=== PATIENT | female | born 1995 | race Caucasian/White ===

== ENCOUNTER 2023-09-03 11:07 | Outpatient (CLI) | payer BC, SELFPAY ==
--- NOTE | ~2023-09-03 | US_ITS ---
EXAMINATION: US thyroid DATE: 09/03/2023 11:47 INDICATION: Rudolph's thyroiditis. Fullness. TECHNIQUE: Multiple ultrasound images of the thyroid were obtained. COMPARISON: None. FINDINGS: The right thyroid lobe measures 5.2 x 1.5 x 1.8 cm. The left thyroid lobe measures 4.1 x 1.2 x 1.8 c m. The isthmus measures 0.3 cm. There is normal echotexture and echogenicity throughout the thyroid g land. No discrete nodules identified. Normal vascular flow is present. IMPRESSION: Unremarkable thyroid ultrasound findings. Reviewed, dictated and finalized at location K.
== END 2023-09-03 11:08 | disposition home or self-care (01) ==
LOC: ANHIMG 11:11
PROVIDERS: PCP Family Medicine; Visit Provider Internal Medicine
DX: E06.3 Autoimmune thyroiditis (principal); R22.1 Localized swelling, mass and lump, neck
CPT/HCPCS: 76536

== ENCOUNTER 2023-09-16 09:20 | Outpatient (CLI) | payer BC, SELFPAY ==
[2023-10-05 17:38] VITALS: BMI 30.7
--- NOTE | 2023-10-05 17:38 | WPDHOMESLEEP ---
Sleep Study - Home Unattended Date of Study: 09/16/23 Ordering Provider: Chinmay Madrid APRN Interpreting Provider: Milka Chacon DO Home Sleep Study Type: Watch PAT Height: 1.75 m Weight: 94.347 kg Body Mass Index: 30.7 Neck Circumference (inches): 16 [place]: 14 Reason for Sleep Study Daytime hypersomnia Sleep History The patient is a 27-year-old female that had a sleep study ordered by the pulmonary group for evaluation of sleep apnea. The patient does admit to snoring loudly. She denies stopping breathing while sleeping. She denies nocturnal choking and gasping. She denies having trouble sleeping on her back. She does admit to morning headache and morning dry mouth. She denies nocturnal heart burn. She denies nocturia. . She admits to being tired during the day and having on refreshing sleep. She does have the urge to fall asleep during the day. She denies feeling drowsy while driving. She denies having difficulty returning to sleep. She denies having trouble waking up too early or having trouble falling asleep. She denies using hypnotics her sedatives. She denies being anxious about sleep. She does admit to clenching and grinding her teeth. She does kick and jerk her legs excessively. She does have a restless feeling in her legs. She does have the urge to move her legs. The bridge to move her legs does not get worse with rest nor does it improve with activity. The restless feeling in her legs only occurs in the evening and it does cause disturbance in her sleep. She denies smoking cigarettes. She consumes 1 glass of an alcoholic beverage 1-2 times per week. She consumes 1-2 cups of caffeinated beverage per day. She denies exercising. [facility] Past Medical History Medical History ADHD (attention deficit hyperactivity disorder) Anxiety Irregular menstrual bleeding TOS (thoracic outlet syndrome) 08/15/13 Surgical History Surgical History H/O left knee surgery x4 History of eye surgery 10/04/20 PRK Family History Family History Mother Diabetes mellitus Grandparent Hypertension paternal grandfather Cerebrovascular accident paternal grandfather Social History Social History Smoking status: Never smoker Alcohol intake: current Alcohol use details: social 5 month Substance use: never Substance use type: does not use Lack of Transportation: No Lack of Food: Never True Current Housing: I Have Housing Concerned About Future Housing: No Difficulty Paying Gas/Electric Bills: No Difficulty Paying for Meds: No Currently Unemployed: YES Education: Bachelor's Degree Difficulty w/ Childcare or Family Care: Decline to Answer Living arrangements: with family Additional living arrangements comments: single Occupation/Education: occupation Additional occupation/education comments: realestate agent Gender identity (if verbalized by the patient): Female Sexual Orientation (if Verbalized by the Patient): Straight or Heterosexual Medications Home Medications Medication Instructions Recorded Confirmed Type sumatriptan succinate 100 mg tablet See Rx Instructions PO .COMPLEX 04/29/23 10/02/23 Rx #10 tabs spironolactone 50 mg tablet 50 mg PO BID #180 tabs 08/24/23 10/02/23 Rx ferrous sulfate 325 mg (65 mg 325 mg PO DAILY #30 tabs 09/03/23 10/02/23 Rx iron) tablet,delayed release metformin 500 mg tablet 500 mg PO DAILY #30 tabs 09/21/23 10/02/23 Rx methylphenidate HCl 18 mg 18 mg PO QAM #30 tabs 10/02/23 10/02/23 Rx tablet,extended release 24 hr (Concerta) Sleep Procedure The sleep study was completed using octoScopeT a technically adequate device with seven channels: peripheral arterial tone, actigraphy, bod
== END 2023-09-17 14:27 | disposition home or self-care (01) ==
LOC: ANHCSM 09:21
PROVIDERS: PCP Family Medicine; Visit Provider Nurse Practitioner Family
DX: G47.19 Other hypersomnia (principal)
CPT/HCPCS: 95800

== ENCOUNTER 2023-12-22 09:42 | Outpatient (CLI) | payer BC, SELFPAY ==
--- NOTE | 2024-01-18 12:37 | P.SLEEP_ITS ---
Sleep Study Date of Study: 12/22/23 Ordering Provider: Chinmay Madrid APRN Interpreting Physician: Milka Chacon DO Sleep Study Type: Polysomnogram Height: 1.75 m Weight: 89.358 kg Body Mass Index: 29.0 Neck Circumference (inches): 15 [place]: 8 Reason for Sleep Study Excessive daytime sleepiness WatchPAT home sleep test on 09/16/2023 showed an overall AHI of 1.6 with desaturation down to 90%. [place] Sleepiness Score of 14 Sleep History The patient is a 28-year-old female that had a sleep study ordered by the pulmonary group for evaluation of excessive daytime sleepiness. She denies awakening from sleep short of breath. She denies awakening at night with heartburn, belching or cough. She occasionally snores but it is rarely loud enough that others complain. She rarely has trouble sleeping when she has a cold. She denies waking up gasping for air throughout the night. She denies having breathing problems at night observed by herself or others. She frequently sweats excessively at night. She denies having heart palpitations or irregular heartbeats during the night. She rarely falls asleep during the day but never while driving. She frequently has trouble at school or work due to sleepiness. She denies sleep paralysis and hypnagogic/ hypnopompic hallucinations. She denies feeling afraid of going to sleep. She rarely has nightmares. She denies remembering her dreams. She constantly has thoughts racing through her mind. She rarely feels sad or depressed. She frequently has anxiety. She frequently has muscular tension. She constantly notices parts of her body jerking. She frequently kicks during the night. She occasionally has crawling and aching feelings in her legs but rarely has leg pain during the night. She frequently grinds her teeth during sleep and frequently awakens with morning jaw pain. She is frequently bothered by pain during the day but rarely awakened by pain during the night. She constantly wakes up feeling stiff in the morning. She constantly wakes up with sore or achy muscles. She constantly wakes up with pain in the neck, spine or other joints. She goes to bed at 10:30 p.m. on weekdays and at midnight on the weekends. It takes her 5-10 minutes to fall asleep. She wakes up once throughout the night at most to urinate and is able to fall back asleep immediately. She wakes up at 7:00 a.m. on weekdays and 8:30 a.m. on the weekends. She typically gets 7 to 7- 1/2 hours of sleep per night. She will stay in bed for 10-15 minutes after waking up in the morning. She currently lives with her . She denies consuming any caffeinated beverages within 2 hours of bedtime. She denies engaging in physical exercise before bedtime. She will watch television before falling asleep. She denies taking naps in the afternoon or the evening. She consumes 1-2 caffeinated beverages per day. She denies tobacco use. She rarely consumes alcoholic beverages. She denies recreational drug use. [facility] Past Medical History Medical History ADHD (attention deficit hyperactivity disorder) Anxiety Encounter for screening examination for sexually transmitted disease Irregular menstrual bleeding TOS (thoracic outlet syndrome) 08/15/13 Surgical History Surgical History H/O left knee surgery x4 History of eye surgery 10/04/20 PRK History of foot surgery (~04/2023) right foot 2 screws inserted after fracture Family History Family History Mother Diabetes mellitus Grandparent Hypertension paternal grandfather Cerebrovascular accident paternal grandfather Social History Social History Smoking status: Never smoker Second hand tobacco smoke exposure: No Alcohol intake: current Alcohol use details: social 5 month Substance use: never Substance use type: does not use Do You Feel Safe in your Home?: Yes Lack of Transportation: No Lack of Food: Never True Current Housing: Decline to Answer Concerned About Future Housing: Decline to Answer Difficulty Paying Gas/Electric Bills: Decline to Answer Difficulty Paying for Meds: Decline to Answer Currently Unemployed: Decline to Answer Education: Decline to Answer Difficulty w/ Childcare or Family Care: Decline to Answer Living arrangements: with family Additional living arrangements comments: Occupation/Education: occupation Additional occupation/education comments: realestate agent Gender identity (if verbalized by the patient): Female Sexual Orientation (if Verbalized by the Patient): Straight or Heterosexual Medications Home Medications Medication Instructions Recorded Confirmed Type sumatriptan succinate 100 mg tablet See Rx Instructions PO .COMPLEX 04/29/23 12/09/23 Rx #10 tabs ferrous sulfate 325 mg (65 mg 325 mg PO DAILY #30 tabs 09/03/23 12/09/23 Rx iron) tablet,delayed release metformin 500 mg tablet 500 mg PO DAILY #30 tabs 09/21/23 12/09/23 Rx atogepant 60 mg tablet (Qulipta) 60 mg PO DAILY #1 tablet 10/28/23 12/09/23 Rx spironolactone 50 mg tablet 50 mg PO BID #180 tabs 11/23/23 12/09/23 Rx dextroamphetamine-amphetamine ER 20 mg PO DAILY #30 caps 12/24/23 Rx 20 mg 24hr capsule,extend release (Adderall XR) Sleep Procedure A full night polysomnogram using the [employer] multi-channel system recorded the standard physiologic parameters including EEG, EOG, submentalis EMG, anterior tibialis EMG, EKG, body position, nasal and oral airflow using nasal pressure sensor and thermistor.? Respiratory parameters of chest and abdominal movements were recorded with Respiratory Inductance Plethysmography belts. Oxygen saturation was recorded by pulse oximetry. Video monitoring was also performed. Sleep stages, periodic limb movements, and EEG arousals were scored in 30 second epochs according to the criteria of the AASM Scoring Manual. The Apnea-Hypopnea Index was calculated using CMS guidelines for definition of hypopnea with 4% O2 desaturations while scoring respiratory events. Sleep Architecture The total recording time was 530.3 minutes.? The total sleep time was 385.5 minutes. Sleep latency was 16.3 minutes. REM latency was 290.0 minutes. Sleep efficiency was 72.7%. The patient had 43 awakenings for an awakening index of 6.7. Wake after sleep onset time was 129.0 minutes. The patient spent 64.5 minutes, 16.7% of total sleep time in Stage N1. The patient spent 183.5 minutes, 47.6% in Stage N2. The patient spent 2.0 minutes, 0.5% in Stage N3. The patient spent 135.5 minutes, 35.1% in Stage REM sleep. Respiratory Analysis The patient had 9 hypopneas, 2 obstructive apneas and 5 central apneas for an overall Apnea Hypopnea Index of 2.5. The REM Apnea Hypopnea Index was 8.9. The NREM Apnea Hypopnea Index was 0.7. The patient had a Central Apnea Hypopnea Index of 0.8. There was no evidence of [place] Respirations. Arousals There were 189 total arousals for an arousal index of 29.4. There were 152 spontaneous arousals for an index of 23.7. There were 6 arousals due to respiratory events for an index of 0.9. There were 6 arousals due to periodic limb movements for an index of 0.9.? There were 26 arousals due to isolated limb movements for an index of 4.0. Periodic Limb Movements The patient had 94 isolated limb movements with an index of 14.6. The patient had 88 periodic limb movements with an index of 13.7. Patient had a total of 182 limb movements with a total limb movement index of 28.3. Oximetry Data The patient had an average oxygen saturation of 96.2% in sleep with a minimum oxygen saturation of 85.0% and a maximum oxygen saturation of 99.0%. The patient had 15 oxygen desaturations that were 4% or greater resulting in an Oxygen Desaturation Index of 2.3.? The patient spent 0.4 minutes, 0.1% of total sleep time with an oxygen saturation below 88%. Snoring Profile Moderate snoring was present throughout the study. Cardiac Profile The EKG showed normal sinus rhythm. No arrhythmias or PVCs were seen. The patient had an average pulse rate of 58.0 bpm with a minimum pulse of rate of 46.0 bpm and a maximum pulse rate of 92.0 bpm.? EEG Profile No signs of seizure activity seen. Assessment and Plan Assessment and Plan (1) Excessive daytime sleepiness: Code(s): G47.19 - Other hypersomnia Status: Acute Assessment and Plan: The patient had an overall AHI of 2.5 with desaturation down to 85%. This is not consistent with sleep-disordered breathing. No sleep-onset REM was seen on this study. Please see MSLT report. The patient also mentioned having frequent symptoms of anxiety in her sleep history. I recommend that the patient complete a PHQ-9 and MARIE-7 for further evaluation of mood disorders and review the results with her PCP. The patient's sleep history is suggestive of Restless Leg Syndrome. I recommend that the patient have a serum ferritin drawn for evaluation of iron deficiency anemia. If the patient has a serum ferritin less than 75 ng/mL, I recommend sta rting a daily iron supplement and a Vitamin C supplement for better absorption. If the serum ferritin is greater than 75 ng/mL, I recommend starting a dopamine agonist and titrating the dose until symptoms resolve. There are nonpharmacological methods to treat limb movements including daily exercise, stretching calf muscles before bed, avoiding excessive amounts of caffeine and alcohol, vitamin B supplementation, magnesium lotion massaged into legs before bed, and use of a weighted blanket. Data The data obtained during this sleep study is adequate for interpretation. Certification This sleep study has been reviewed by a board certified sleep medicine physician.
[2024-01-18 15:19] VITALS: BMI 29.0
[2024-01-18 15:32] VITALS: BMI 29.0
--- NOTE | 2024-01-18 15:32 | P.SLEEP_ITS ---
Sleep Study Date of Study: 12/22/23 Ordering Provider: Chinmay Madrid APRN Interpreting Physician: Milka Chacon DO Sleep Study Type: Multiple Sleep Latency Test Height: 1.75 m Weight: 89.358 kg Body Mass Index: 29.0 Neck Circumference (inches): 15 [place]: 8 Reason for Sleep Study Excessive daytime sleepiness Sleep History Please see polysomnogram report PMFSH Past Medical History Medical History ADHD (attention deficit hyperactivity disorder) Anxiety Encounter for screening examination for sexually transmitted disease Irregular menstrual bleeding TOS (thoracic outlet syndrome) 08/15/13 Surgical History Surgical History H/O left knee surgery x4 History of eye surgery 10/04/20 PRK History of foot surgery (~04/2023) right foot 2 screws inserted after fracture Family History Family History Mother Diabetes mellitus Grandparent Hypertension paternal grandfather Cerebrovascular accident paternal grandfather Social History Social History Smoking status: Never smoker Second hand tobacco smoke exposure: No Alcohol intake: current Alcohol use details: social 5 month Substance use: never Substance use type: does not use Do You Feel Safe in your Home?: Yes Lack of Transportation: No Lack of Food: Never True Current Housing: Decline to Answer Concerned About Future Housing: Decline to Answer Difficulty Paying Gas/Electric Bills: Decline to Answer Difficulty Paying for Meds: Decline to Answer Currently Unemployed: Decline to Answer Education: Decline to Answer Difficulty w/ Childcare or Family Care: Decline to Answer Living arrangements: with family Additional living arrangements comments: Occupation/Education: occupation Additional occupation/education comments: realestate agent Gender identity (if verbalized by the patient): Female Sexual Orientation (if Verbalized by the Patient): Straight or Heterosexual Medications Home Medications Medication Instructions Recorded Confirmed Type sumatriptan succinate 100 mg tablet See Rx Instructions PO .COMPLEX 04/29/23 12/09/23 Rx #10 tabs ferrous sulfate 325 mg (65 mg 325 mg PO DAILY #30 tabs 09/03/23 12/09/23 Rx iron) tablet,delayed release metformin 500 mg tablet 500 mg PO DAILY #30 tabs 09/21/23 12/09/23 Rx atogepant 60 mg tablet (Qulipta) 60 mg PO DAILY #1 tablet 10/28/23 12/09/23 Rx spironolactone 50 mg tablet 50 mg PO BID #180 tabs 11/23/23 12/09/23 Rx dextroamphetamine-amphetamine ER 20 mg PO DAILY #30 caps 12/24/23 Rx 20 mg 24hr capsule,extend release (Adderall XR) Sleep Procedure The MSLT is a full-day test that consists of five scheduled naps. After the first nap trial, the subsequent nap trial begins 2 hours after the start of the prior nap trial.?The patient is given the opportunity to fall asleep within 20 m inutes and is woken up 15 minutes after falling asleep. The goal is to see if the patient achieves REM sleep within the nap. The recording montage for the MSLT includes frontal (F3-M2 or F4-M1), central (C3-M2 or C4-M1), occipital (O1- M2 or O2-M1) derivations, left and right eye EOGs, mental/submental EMG, and EKG.? Sleep Architecture Nap Summary: Nap trials started at 07:59:50 AM following an overnight polysomnogram that ended at 06:25 with an overall Apnea Hypopnea index of 2.5 events per hour. Sleep onset REM (SOREM) was not present during the overnight polysomnogram. Nap 1 commenced at 07:59:50 AM. Sleep latency was 4.5 minutes. REM sleep did not occur. Total sleep time was 15.8 minutes. Nap was terminated at 08:20:06. The patient reported that sleep may have occurred. The patient reported that dreaming did not occur. Nap 2 commenced at 09:59:50 AM. Sleep latency was 4.0 minutes. REM sleep did not occur. Total sleep time was 12.2 minutes. Nap was terminated at 10:19:31 AM. The patient reported that sleep did not occur. The patient reported that dreaming did not occur. Nap 3 commenced at 12:00:53 PM. Sleep latency was 6.4 minutes. REM sleep did not occur. Total sleep time was 12.5 minutes. Nap was terminated at 12:22:50 PM. The patient reported that sleep may have occurred.The patient reported that dreaming did not occur. Nap 4 commenced at 02:00:59PM. Sleep latency was 7.3 minutes. REM sleep did not occur. Total sleep time was 13.7 minutes. Nap was terminated at 02:23:59 PM. The patient reported that sleep did occur.The patient reported that dreaming did not occur. Nap 5 commenced at 04:02:20 PM. Sleep latency was 20 minutes. REM sleep did not occur. Total sleep time was 0 minutes. Nap was terminated at 04:23:14 PM. The patient reported that sleep did not occur.The patient reported that dreaming did not occur. The patient achieved sleep in 4 of 5 nap opportunities. The overall average sleep latency was 8.6 minutes. The patient achieved REM sleep (SOREM) in 0 naps. Respiratory Analysis N/A Arousals N/A Periodic Limb Movements N/A Oximetry Data N/A Snoring Profile N/A Cardiac Profile N/A EEG Profile No signs of seizure activity seen. Assessment and Plan Assessment and Plan (1) Excessive daytime sleepiness: Code(s): G47.19 - Other hypersomnia Status: Acute Assessment and Plan: The patient achieved sleep in 4 of 5 nap opportunities. The overall average sleep latency was 8.6 minutes. The patient achieved REM sleep (SOREM) in 0 naps. SOREM was not achieved in the polysomnogram from the night prior. These findings are not consistent with narcolepsy. Data The data obtained during this sleep study is adequate for interpretation. Certification This sleep study has been reviewed by a board certified sleep medicine physician.
== END 2023-12-23 16:48 | disposition home or self-care (01) ==
PROVIDERS: PCP Family Medicine; Visit Provider Nurse Practitioner Family
DX: F51.8 Other sleep disorders not due to a substance or known physiological condition (principal); G47.10 Hypersomnia, unspecified; G47.19 Other hypersomnia
CPT/HCPCS: 95805; 95810

== ENCOUNTER 2024-12-02 11:05 | Outpatient (CLI) | payer BC, SELFPAY ==
--- OUTSIDE RECORDS SUMMARY | 2023-12-02 04:00 | XMS_ITS ---
Author Organization [facility] [place] ([address]) Address [address] [place] [address] Care Team Providers Care Business Strategist Name Role Phone Allyn Loo Primary Care Provider Dr. Beka Mathis [facility] [phone] REASON FOR VISIT Headache follow-up Encounters Encounter Location Date Provider Diagnosis [facility] [address] [place] [address] 12/02/2023 Beka Schreiber Plan Of Treatment No Information Progress Notes * Patria AARONDOB:1995 ( 29 yo F)Acc No.[id number]:12/02/2023 Progress Notes Patient: Patria SWARTZ Provider: Saira Schreiber MD :1995 A ge:28 Y S ex:Female Date:12/02/2023 Address:[address] [place] [address], [id number] Pcp:Allyn Loo Subjective: * Chief Complaints: * 1 . Headache follow-up. * Medical History: Objective: * Vitals: Assessment: Plan: * Treatment: * Billing Information: * Visit Code: * Procedure Codes: * Electronic signature of Dr. Beka Schreiber MD on 12/02/2024 at 11:26 AM CDT Sign off status: Pending * Provider: Saira Schreiber MD Date: 1 Generated for Anel lópez/Andrew/Jose on: 1 11:26 AM INDIRA
--- NOTE | ~2024-12-02 | XR_ITS ---
EXAMINATION: XR shoulder LT min 2V, 12/02/2024 11:20 CDT HISTORY: left shoulder pain, no injury COMPARISON: No comparisons available. Findings: No acute fracture or malalignment. No significant degenerative changes. Soft tissues unremarkable. Impression: No acute fracture or malalignment. Reviewed, dictated and finalized at location P. Impression: No acute fracture or malalignment.
--- OUTSIDE RECORDS SUMMARY | 2024-12-02 11:27 | XMS_ITS | Patient Health Record ---
Author Organization [facility] [employer] [place] ([address]) Address [address] [place] [address] Care Team Providers Care Olive Brine Tester Name Role Phone Allyn Loo Primary Care Provider Tg Schreiber [facility] [phone] Allergies No Known Allergies Reason For Referral No Information Medications Medication SIG (Take, Route, Frequency, Duration) Notes Start Date End Date Status Qulipta 60 MG 1 tablet Orally Once a day; Duration: 30 days 10/07/2023 Active metFORMIN HCl 500 MG 1 tablet with a ronen l Orally Once a day Active Rizatriptan Benzoate 10 MG 1 tablet Orally once, may repeat x1 after 2-4 hours; Duration: 30 days As needed for migraine (max 2 tabs/day) 10/07/2023 Active Methylphenidate HCl ER 18 MG 1 tablet in the morning Orally Once a day Active Spironolactone 50 MG 1 tablet Orally Onc e a day Active Imitrex 100 MG 1 tablet at least 2 hours between doses as needed Orally Twice a day Active Social History Tobacco Use: Social History Observation Description Date Details (start date - stop date) Never Smoker NA - NA Smoking Smart Form: Question Answer Notes Are you a: never smoker Tobacco Control (Standard) Question Answer Notes Tobacco use: Nonsmoker Problems Problem Type SNOMED Code ICD Code Onset Dates Problem Status W/U Status Risk Notes Problem Migraine with aura (7904150) Migraine with aura, not intractable, without status migrainosus (G43.109) Active confirmed Problem Episodic tension-type headache (771669579) Episodic tension-type headache, not intractable (G44.219) Active confirmed Problem Muscle pain (43589898) Myalgia, unspecified site (M79.10) Active confirmed Encounters Encounter Location Date Provider Diagnosis [facility] [address] [place] [address] 09/02/2024 Beka Schreiber Plan Of Treatment No Information Insurance Providers Payer Name Payer Address Payer Phone Subscriber Number Group Number Insured Name Patient Relationship to Insured Coverage Start Date Coverage End Date [facility] [address] [place] [address] [id number] Patria Aaron Self - patient is the insured 3 Medical (General) History Medical History History ICD Code Migraine H/o juvenile RA PCOS ADHD Rudolph's Surgical History Surgery Date(Month/Year) Foot surgery 2023
== END 2024-12-02 11:06 | disposition home or self-care (01) ==
PROVIDERS: PCP Student in an Organized Health Care Education/Training Program; Visit Provider Chiropractor
DX: M25.512 Pain in left shoulder (principal)
CPT/HCPCS: 73030